=== PATIENT | female | born 2000 | race Caucasian/White ===

== ENCOUNTER → 2020-01-08 | Outpatient (CLI) | payer OTHER ==
[~2020-01-08] MED LIST: ACET-897 PO; IBUP-1720 PO; MAPA500T2 PO
[2020-01-08 19:24] LABS: BASO % 0.2 % (0.0-1.0); EOS # 0.1 10^3/uL (0.0-0.5); EOS % 0.7 % (0.0-3.0); HEMATOCRIT 39.3 % (36.0-47.0); HEMOGLOBIN 13.3 g/dl (12.0-15.5); LYMPH # 2.2 10^3/uL (1.5-5.0); LYMPH % 16.7 % (24.0-44.0); MEAN CORPUSCULAR HEMOGLOBIN 30.9 pg (27.0-33.0); MEAN CORPUSCULAR HGB CONC 33.8 g/dl (32.0-36.5); MEAN CORPUSCULAR VOLUME 91.4 fl (80.0-96.0); MONO # 0.8 10^3/uL (0.0-0.8); MONO % 6.4 % (0.0-5.0); NEUTROPHILS # 9.8 10^3/uL (1.5-8.5); NEUTROPHILS % 75.6 % (36.0-66.0); PLATELET COUNT, AUTOMATED 294 10^3/uL (150-450)
[2020-01-08 20:40] LABS: HEPATITIS C VIRUS ABY INDEX 0.2 INDEX (<0.8); HIV 1&2 SCREEN CENTAUR NEGATIVE (NEGATIVE)
== END ==
LOC: M PLALAB 15:32
PROVIDERS: ATTEND Advanced Practice Midwife
DX: Z34.01 Encounter for supervision of normal first pregnancy, first trimester (principal)

== ENCOUNTER 2020-01-15 15:11 | Emergency (ER) | payer MEDICAID, OTHER ==
[~2020-01-15] VITALS: Ht 160 cm; Wt 81.2 kg
[2020-01-15] MEDS ORDERED: MAPA500T2 PO (15:23)
[2020-01-15 16:50] LABS: BASO % 0.2 % (0.0-1.0); EOS # 0.1 10^3/uL (0.0-0.5); EOS % 0.5 % (0.0-3.0); HEMATOCRIT 36.5 % (36.0-47.0); HEMOGLOBIN 12.6 g/dl (12.0-15.5); LYMPH # 1.6 10^3/uL (1.5-5.0); LYMPH % 11.2 % (24.0-44.0); MEAN CORPUSCULAR HEMOGLOBIN 31.1 pg (27.0-33.0); MEAN CORPUSCULAR HGB CONC 34.5 g/dl (32.0-36.5); MEAN CORPUSCULAR VOLUME 90.1 fl (80.0-96.0); MONO # 0.7 10^3/uL (0.0-0.8); MONO % 4.6 % (0.0-5.0); NEUTROPHILS # 11.8 10^3/uL (1.5-8.5); NEUTROPHILS % 82.9 % (36.0-66.0); PLATELET COUNT, AUTOMATED 245 10^3/uL (150-450); RED BLOOD COUNT 4.05 10^6/uL (4.00-5.40); WHITE BLOOD COUNT 14.2 10^3/uL (4.0-10.0)
--- NOTE | 2020-01-15 17:13 | REPVR ---
PROCEDURE INFORMATION: Exam: US First Trimester, Transabdominal Exam date and time: 01/15/2020 4:54 PM Age: 19 years old Clinical indication: Pain; Other: Vag bleeding; Gestational age or lmp: 9wks; ; Additional info: Vb TECHNIQUE: Imaging protocol: Real-time transabdominal obstetrical ultrasound of the maternal pelvis and a first trimester , less than 14 weeks 0 days, with image documentation. COMPARISON: No relevant prior studies available. FINDINGS: Gestation: Single intrauterine gestation. Embryonic/ heart rate: 153 bpm. Placenta: No demonstrated subchorionic hemorrhage. BIOMETRY: Gestational age (AUA): Lowman-rump length 29.0 mm, corresponding to an estimated gestational age of 9 weeks 6 days. MATERNAL: Uterus: The uterus measures 9.3 x 6.3 x 8.2 cm. Question whether it is septated. Cervix: Unremarkable. Right adnexa: The right ovary measures 1.7 x 3.0 x 1.8 cm and appears unremarkable. Left adnexa: The left ovary measures 2.3 x 3.3 x 2.8 cm and appears unremarkable. Intraperitoneal space: No intraperitoneal free fluid. IMPRESSION: 1. Single viable intrauterine gestation with estimated gestational age of 9 weeks 6 days. 2. Question septation of the uterus. Electronically signed by: Larry Pavon On 01/15/2020 17:13:18 PM
[2020-01-15 19:07] VITALS: BP 120/73
== END 2020-01-15 19:11 | disposition home or self-care (01) ==
LOC: M ED 15:11
DX: O26.851 Spotting complicating pregnancy, first trimester (principal); O99.331 Smoking (tobacco) complicating pregnancy, first trimester; F17.200 Nicotine dependence, unspecified, uncomplicated; Z3A.09 9 weeks gestation of pregnancy; Z91.018 Allergy to other foods; Z88.8 Allergy status to other drugs, medicaments and biological substances

== ENCOUNTER 2020-01-21 19:59 | Observation (INO) | payer MEDICAID, OTHER ==
[~2020-01-21] VITALS: Ht 160 cm; Wt 74.5 kg
[~2020-01-21 19:59] MED LIST changes: -ACET-897 PO; -IBUP-1720 PO
[2020-01-21 20:47] LABS: BASO % 0.2 % (0.0-1.0); EOS # 0.1 10^3/uL (0.0-0.5); EOS % 0.6 % (0.0-3.0); HEMATOCRIT 34.1 % (36.0-47.0); HEMOGLOBIN 11.6 g/dl (12.0-15.5); LYMPH # 2.3 10^3/uL (1.5-5.0); LYMPH % 15.9 % (24.0-44.0); MEAN CORPUSCULAR HEMOGLOBIN 30.9 pg (27.0-33.0); MEAN CORPUSCULAR VOLUME 90.9 fl (80.0-96.0); MONO # 0.7 10^3/uL (0.0-0.8); MONO % 4.6 % (0.0-5.0); NEUTROPHILS # 11.2 10^3/uL (1.5-8.5); NEUTROPHILS % 78.2 % (36.0-66.0); PLATELET COUNT, AUTOMATED 248 10^3/uL (150-450); RED BLOOD COUNT 3.75 10^6/uL (4.00-5.40); WHITE BLOOD COUNT 14.2 10^3/uL (4.0-10.0)
[2020-01-21] MEDS ORDERED: NS 1,000 ML IV SCH (21:31)
[2020-01-21] MEDS ORDERED: METOCLOPRAMIDE INJ 10MG/2ML VIAL (J2765 PER 1) IV ONE (21:45)
[2020-01-21 22:08] LABS: INR 1.02; PARTIAL THROMBOPLASTIN TIME 30.1 SECONDS (25.0-38.4); PROTHROMBIN TIME 13.6 SECONDS (11.8-14.0)
[2020-01-21 22:12] LABS: ALBUMIN 3.4 GM/DL (3.2-5.2); ALT/SGPT 22 U/L (12-78); BILIRUBIN,DIRECT 0.1 MG/DL (0.0-0.2); BILIRUBIN,TOTAL 0.2 MG/DL (0.2-1.0); BLOOD UREA NITROGEN 5 MG/DL (7-18); CALCIUM LEVEL 8.4 MG/DL (8.5-10.1); CARBON DIOXIDE LEVEL 25 MEQ/L (21-32); CHLORIDE LEVEL 108 MEQ/L (98-107); CREATININE FOR GFR 0.46 MG/DL (0.55-1.30); GLUCOSE, FASTING 88 MG/DL (70-100); HCG, SERUM QUANTITATIVE 21392 MIU/ML; POTASSIUM SERUM 3.5 MEQ/L (3.5-5.1); SODIUM LEVEL 137 MEQ/L (136-145); TOTAL PROTEIN 6.5 GM/DL (6.4-8.2)
[2020-01-21] MEDS ORDERED: IBUP-1720 PO (23:51)
[2020-01-21] MEDS ORDERED: ACET-897 PO (23:51)
[2020-01-22] MEDS ORDERED: METOCLOPRAMIDE 10 MG TAB PO PRN (00:30)
[2020-01-22] MEDS ORDERED: ACETAMINOPHEN TAB 650MG DOSE (2X325MG) PO PRN (00:30)
--- NOTE | 2020-01-22 01:10 | HPEPDOC ---
General Date of Admission 01/22/2020 Date of Service: Jan 22, 2020 Attending Physician: FLORES LOMBARDO MD Chief Complaint The patient is a 19-year-old female admitted with a reason for visit of Abd Pain. Source: Patient Exam Limitations: No limitations Timing/Duration: 1/2-1 hour Severity: Moderate Associated Symptoms: Headaches History of Present Illness 19 yo at 10w5d with confirmed intrauterine c/b mild vaginal bleeding who presented with acute onset R eye lateral deviation, bilateral facial numbness, R arm and R leg numbness that lasted up to 30 minutes followed by a severe headache that prompted her to present to the ED. Of note, she has no prior history of migraine and was recently in the ED for vaginal bleeding/spotting for which she had confirmation of an intrauterine and [facility]. She reported a 30 minute history of the above neurological symptoms that self resolved and followed by a severe frontal headache that also had resolved by the time I examined her in the ED, after she had been given reglan. She otherwise reported ongoing spotting as previously reported and mild cramping, with april heavy bleeding, no chest pain, palpitation, leg swelling or pain, SOB, fever or recent sick contacts. She also denied a history of blood clots or smoking. In the ED, she was hemodynamically stable, afebrile with a nonfocal neurological examination reporting initially a headache, that had resolved by the time of my assessment. Neurology was contacted by the ED physician that suspected a complex migraine and suggested carotid doppler US, possible consideration of an MRI if neurological deficits/changes returned and possible hypercoagulable workup. Workup in the ED was notable for grossly normal CT head without contrast, stable leukocytosis of 14.2 from prior, mild anemia to Hgb 11.6, na 137, K 3.5, Cr 0.46, bland [place] [address] and LFT wnl. She is now being admitted to medicine for observation of likely complex migraine. Home Medications Scheduled PRN Acetaminophen (Tylenol Extra Strength) 500 Mg Tablet, 1,000 MG PO Q6H PRN for PAIN, (Reported) Ibuprofen (Ibuprofen) 200 Mg Tablet, 400 MG PO Q6H PRN for PAIN, (Reported) Allergies Coded Allergies: fluoxetine (Verified Adverse Reaction, Intermediate, vomiting, mood swings., 01/15/20) cinnamon (Verified Adverse Reaction, Unknown, 01/15/20) Past Medical History Medical History Depression Anxiety Surgical History None Family History Significant Family History: No pertinent family hx Social History * Smoker: Denies Alcohol: Denies Drugs: denies Recent Travel/Sick Contacts: Denies: Recent travel, Recent sick contacts Psychosocial History: Anxiety, Depression A-FIB/CHADSVASC A-FIB History Current/History of A-Fib/PAF?: No Current PO Anticoag Therapy: No Age/Risk Factor Scoring CHADSVASC: CHADSVASC Response (Comments) Value Age Risk Factor Age < 65 years old 0 Gender Risk Factor Female 1 Hx of CHF No 0 Hx of HTN No 0 Hx of Stroke/TIA/or VTE No 0 Hx of Diabetes No 0 Hx of Vascular Disease No 0 Total 1 Treatment Treatment ordered: NONE Reason Anticoagulant not given: Not indicated/[id number] Review of Systems Constitutional: Denies: Chills, Fever, Night Sweats Eyes: Reports: Other (R eye "deviation"); Denies: Pain, Vision change ENT: Denies: Head Aches, Ear Pain, Dysphagia Skin: Denies: Rash, Lesions, Breakdown Pulmonary: Denies: Dyspnea, Cough Cardiovascular: Denies: Chest Pain, Palpitations, Orthopnea, Paroxysmal Noc. Dyspnea, Lt Headedness Gastrointestinal: Denies: Nausea, Vomiting, Abdominal Pain, Diarrhea Genitourinary: Denies: Dysuria, Frequency, Incontinence, Retention Hematologic: Denies: Bruising, Bleeding Excessively Endocrine: Denies: Polydipsia, Polyphagia, Polyuria, Heat Intolerance, Cold Intolerance, Other Endocrine Sx Musculoskeletal: Denies: Neck Pain, Back Pain, Joint Pain, Muscle Pain, Spasms Neurological: Reports: Numbness (face, R arm and R leg); Denies: Weakness, Incoordination, Change in speech, Confusion, Seizures Psych: Reports: Mood Normal; Denies: Depression, Memory Issues Physical Examination General Exam: Positive: Alert, No Acute Distress ENT Exam: Positive: Atraumatic, Mucous membr. moist/pink, Pharynx Normal Neck Exam: Positive: Supple; Negative: JVD, thyromegaly Chest Exam: Positive: Clear to auscultation, Normal air movement Heart Exam: Positive: Rate Normal, Regular Rhythm, Normal S1, Normal S2; Negative: Murmurs, Rubs Telemetry: Positive: No significant arrhythmia Abdomen Exam: Positive: Normal bowel sounds, Soft; Negative: Tenderness, Hepatospenomegaly Extremity Exam: Positive: Normal pulses; Negative: Clubbing, Cyanosis, Edema Skin Exam: Positive: Nl turgor and temperature; Negative: Breakdown, Lesion Neuro Exam: Positive: Normal Gait, Normal Speech, Strength at 5/5 X4 ext, Normal Tone, Sensation Intact, Cranial Nerves 3-12 NL, Reflexes 2+ Psych Exam: Positive: Mental status NL, Mood NL, Oriented x 3 Vital Signs Vital Signs Date Time Temp Pulse Resp B/P (MAP) Pulse Ox O2 Delivery O2 Flow Rate FiO2 01/21/20 21:13 72 16 126/67 98 01/21/20 20:12 99.1 Room Air Laboratory Data Labs 24H Laboratory Tests 2 01/21/20 20:29: Immature Granulocyte % (Auto) 0.5, Neutrophils (%) (Auto) 78.2H, Lymphocytes (%) (Auto) 15.9L, Monocytes (%) (Auto) 4.6, Eosinophils (%) (Auto) 0.6, Basophils (%) (Auto) 0.2, Neutrophils # (Auto) 11.2H, Lymphocytes # (Auto) 2.3, Monocytes # (Auto) 0.7, Eosinophils # (Auto) 0.1, Basophils # (Auto) 0.0, Nucleated Red Blood Cells % (auto) 0.0, Prothrombin Time 13.6, Prothromb Time International Ratio 1.02, Activated Partial Thromboplast Time 30.1, Urine Color YELLOW, Urine Appearance CLEAR, Urine pH 7.0, Urine Specific [place] 1.012, Urine Protein NEGATIVE, Urine Glucose (UA) NEGATIVE, Urine Ketones TRACEH, Urine Blood NEGATIVE, Urine Nitrite NEGATIVE, Urine Bilirubin NEGATIVE, Urine Urobilinogen 0.2, Urine Leukocyte Esterase NEGATIVE, Urine WBC (Auto) 1, Urine RBC (Auto) 1, Urine Hyaline Casts (Auto) 0, Urine Bacteria (Auto) NEGATIVE, Urine Squamous Epithelial Cells 1, Urine Mucus (Auto) SMALL, Urine Sperm (Auto) , Anion Gap 4L, Calcium Level 8.4L, Total Bilirubin 0.2, Direct Bilirubin 0.1, Aspartate Amino Transf (AST/SGOT) 17, Alanine Aminotransferase (ALT/SGPT) 22, Alkaline Phosphatase 62, Total Protein 6.5, Albumin 3.4, Albumin/Globulin Ratio 1.1L, Human Chorionic Gonadotropin, Quant [id number] CBC/BMP Laboratory Tests 01/21/20 20:29 Assessment/Plan 19 yo at 10w5d with confirmed intrauterine c/b mild vaginal bleeding who presented with acute onset R eye lateral deviation, bilateral facial numbness, R arm and R leg numbness that lasted up to 30 minutes followed by a severe headache most c/w a complex migraine as well as persistent vaginal spotting with a stable mild anemia. Complex migraine headache with prodromal neurological symptoms -CT head wnl -Headache now resolved, after fluids and reglan -Reglan PRN -Will hold off MRI at this time given resolution of symptoms and will observe overnight for return of symptoms that may prompt further imaging -Q4H neuro checks -Carotid doppler US, per neuro recs -Will hold off hypercoagulable workup at this time with low suspicion of clot given no history and self resolution of symptoms Vaginal bleeding in G1PO at 10w5d: -Recently presented for same a few days ago and had confirmed intrauterine . -pending pelvic ultrasound -H/H is stable, check AM CBC -[facility] -daily vitamin DVT ppx: TEDs Dispo: obs, likely home within 24h Plan / VTE VTE Prophylaxis Ordered?: Yes FLORES LOMBARDO MD Jan 22, 2020 01:10
[2020-01-22 02:23] VITALS: BP 132/76
[2020-01-22 06:00] VITALS: BP 105/64
[2020-01-22 07:00] LABS: HEMATOCRIT 36.6 % (36.0-47.0); HEMOGLOBIN 12.4 g/dl (12.0-15.5); MEAN CORPUSCULAR HEMOGLOBIN 30.7 pg (27.0-33.0); MEAN CORPUSCULAR HGB CONC 33.9 g/dl (32.0-36.5); MEAN CORPUSCULAR VOLUME 90.6 fl (80.0-96.0); PLATELET COUNT, AUTOMATED 247 10^3/uL (150-450); RED BLOOD COUNT 4.04 10^6/uL (4.00-5.40); WHITE BLOOD COUNT 12.3 10^3/uL (4.0-10.0)
[2020-01-22 07:07] LABS: BLOOD UREA NITROGEN 6 MG/DL (7-18); CALCIUM LEVEL 8.7 MG/DL (8.5-10.1); CARBON DIOXIDE LEVEL 23 MEQ/L (21-32); CHLORIDE LEVEL 110 MEQ/L (98-107); CREATININE FOR GFR 0.43 MG/DL (0.55-1.30); GLUCOSE, FASTING 82 MG/DL (70-100); POTASSIUM SERUM 3.5 MEQ/L (3.5-5.1); SODIUM LEVEL 139 MEQ/L (136-145)
[2020-01-22] MEDS ORDERED: PRENATAL VITAMINS CHEWABLE TABLET PO SCH (09:00)
[2020-01-22 12:43] VITALS: BP 137/83
[2020-01-22 14:00] VITALS: BP 109/67
[2020-01-22 14:15] VITALS: BP_SYST 109; BP_SYST 128; BP_SYST 130; BP_DIAS 67; BP_DIAS 68; BP_DIAS 74
--- NOTE | 2020-01-22 16:21 | DS.PDOC ---
Discharge Summary General Date of Admission Jan 22, 2020 at 00:19 Date of Discharge 2019 Attending Physician: BROOKS JOHNSON MD Specialist/Consultants Involve: Kim Loera MD Discharge Summary PROCEDURES PERFORMED DURING STAY: [None]. ADMITTING DIAGNOSES/DISCHARGE DIAGNOSES: 1. Complex hemiplegic migraine. COMPLICATIONS/CHIEF COMPLAINT: Headache,Right Sided Numbness, Vaginal Bleeding. HISTORY OF PRESENT ILLNESS: The patient is a 19-year-old 11 weeks 2 days chest addition with a confirmed intrauterine who presented to the em ergency department today with mild vaginal bleeding with clots and cramping abdominal pain, followed by a sudden onset excruciating headache with right sided lateral deviation of eye, bilateral facial numbness, right arm and right leg numbness that lasted up to 30 minutes. All these episodes happened over the same time period. The patient had been bending over and lifting some things when she started with this episode. The patient states she has had recurrent headache episodes with slight blurring of vision before, her last episode of headache with blurring of vision was 4 years ago. She does not see any neurologist and has no primary care provider but sees a system software programmer for her . The patient has had a vaginal bleeding episode one week ago and was admitted to [facility] where she was confirmed to have a viable intrauterine with a gestational age of 9 weeks and 6 days. Today she denies any dizziness or loss of consciousness chest pain palpitations or leg swelling shortness of breath fever or any history of travel. The patient had one episode of vomiting but that is because of her regular morning sickness. HOSPITAL COURSE/DISCHARGE PLAN: The patient was hemodynamically stable afebrile initially reporting a headache which got better over a period of minutes she was given some fluids and Reglan in the ED. CT head without contrast was done which turned out to be normal she had stable leukocytosis mild anemia hemoglobin of 11.6. Neurology was consulted who recommended a Carotid Doppler ultrasoundthe report is pending. The patient's condition kept on improving and since she has had a past history of complex migraine she was not worked up any further for hypercoagulable state. The patient however is advised to follow-up with neurology in an outpatient setting for her hemiplegic complex migraine. Gynecology was also consulted for her to episodes of vaginal bleeding with clots and cramping. Her pelvic ultrasound showed a normal viable intrauterine gestation with an estimated gestational age of 11 weeks and 2 days. The SHIPPING MANAGER doctors Luz Maria suggested that the patient follow-up with them [facility]. The patient is already scheduled for an SHIPPING MANAGER appointment on 02/10/2020. DISCHARGE MEDICATIONS: Please see below. ALLERGIES: Please see below. PHYSICAL EXAMINATION ON DISCHARGE: VITAL SIGNS: Please see below. GENERAL: The patient was in no acute distress sitting comfortably in the bed HEENT: Atraumatic normocephalic, mucous membranes moist, extraocular muscles intact, vision intact, no drooping of eyelids NECK: Noted lymphadenopathy, no thyromegaly, no carotid bruit CARDIOVASCULAR EXAMINATION: Normal S1-S2, no murmurs or rubs heard RESPIRATORY EXAMINATION: Clear to auscultation bilaterally, no wheezes, no crackles and no rhonchi heard ABDOMINAL EXAMINATION: Soft obese, nondistended nontender, no organomegaly palpated. EXTREMITIES: Normal range of motion in all 4 extremities, no rashes clots or dryness noted SKIN: Normal color and temperature and well perfused NEUROLOGICAL EXAMINATION: 5/5 motor strength in all 4 extremities with sensations intact. Cranial nerves 2-12 normal. No residual weakness numbness or tingling PSYCHIATRIC EXAMINATION: The patient has a normal affect and alert oriented to time place and person LABORATORY DATA: Please see below. IMAGING: -CT head without contrast: Normal -Pelvic ultrasound: Shows a single viable intrauterine gestation with an estimated gestational age of 11 weeks and 2 days -US Carotid doppler: No abnormality noted. PROGNOSIS: Good ACTIVITY: As tolerated. DIET: As tolerated DISPOSITION: DISCHARGE INSTRUCTIONS: 1. Patient must follow-up with neurology outpatient for her complex hemiplegic migraine management. 2. patient must keep her SHIPPING MANAGER appointment scheduled for 02/10/2020. 3. patient must report to the emergency department in case symptoms worsen. DISCHARGE CONDITION: Stable. TIME SPENT ON DISCHARGE: Greater than 40 minutes. Vital Signs/I&Os Vital Signs Date Time Temp Pulse Resp B/P (MAP) Pulse Ox O2 Delivery O2 Flow Rate FiO2 01/22/20 14:15 73 109/67 (81) 77 130/68 (88) 110 128/74 (92) 01/22/20 14:00 98.6 18 99 Room Air I&O- Last 24 Hours up to 6 AM 01/22/20 06:00 Intake Total 800 ml Balance 800 ml Laboratory Data Labs 24H Laboratory Tests 2 01/21/20 20:29: Immature Granulocyte % (Auto) 0.5, Neutrophils (%) (Auto) 78.2H, Lymphocytes (%) (Auto) 15.9L, Monocytes (%) (Auto) 4.6, Eosinophils (%) (Auto) 0.6, Basophils (%) (Auto) 0.2, Neutrophils # (Auto) 11.2H, Lymphocytes # (Auto) 2.3, Monocytes # (Auto) 0.7, Eosinophils # (Auto) 0.1, Basophils # (Auto) 0.0, Nucleated Red Blood Cells % (auto) 0.0, Prothrombin Time 13.6, Prothromb Time International Ratio 1.02, Activated Partial Thromboplast Time 30.1, Urine Color YELLOW, Urine Appearance CLEAR, Urine pH 7.0, Urine Specific [place] 1.012, Urine Protein NEGATIVE, Urine Glucose (UA) NEGATIVE, Urine Ketones TRACEH, Urine Blood NEGATIVE, Urine Nitrite NEGATIVE, Urine Bilirubin NEGATIVE, Urine Urobilinogen 0.2, Urine Leukocyte Esterase NEGATIVE, Urine WBC (Auto) 1, Urine RBC (Auto) 1, Urine Hyaline Casts (Auto) 0, Urine Bacteria (Auto) NEGATIVE, Urine Squamous Epithelial Cells 1, Urine Mucus (Auto) SMALL, Urine Sperm (Auto) , Anion Gap 4L, Calcium Level 8.4L, Total Bilirubin 0.2, Direct Bilirubin 0.1, Aspartate Amino Transf (AST/SGOT) 17, Alanine Aminotransferase (ALT/SGPT) 22, Alkaline Phosphatase 62, Total Protein 6.5, Albumin 3.4, Albumin/Globulin Ratio 1.1L, Human Chorionic Gonadotropin, Quant [id number] 01/22/20 06:13: Nucleated Red Blood Cells % (auto) 0.0, Anion Gap 6L, Calcium Level 8.7 CBC/BMP Laboratory Tests 01/21/20 20:29 01/22/20 06:13 Discharge Medications Scheduled PRN Acetaminophen (Tylenol Extra Strength) 500 Mg Tablet, 1,000 MG PO Q6H PRN for PAIN, (Reported) Ibuprofen (Ibuprofen) 200 Mg Tablet, 400 MG PO Q6H PRN for PAIN, (Reported) Allergies Coded Allergies: fluoxetine (Verified Adverse Reaction, Intermediate, vomiting, mood swings., 01/15/20) cinnamon (Verified Adverse Reaction, Unknown, 01/15/20) GME ATTESTATION GME ATTESTATION My faculty preceptor for this patient encounter was physically present during the encounter and was fully available. All aspects of the patient interview, examination, medical decision making process, and medical care plan development were reviewed and approved by the faculty preceptor. The faculty preceptor is aware and concurs with the plan as stated in the body of this note and will attest to such by his/her cosignature. ATTENDING NOTE Pt was seen and examined by me personally with the residents/students. Agree with the above assessment plan. Gloria Lemus MD Jan 22, 2020 16:21 BROOKS JOHNSON MD Jan 31, 2020 10:29
--- NOTE | 2020-01-25 10:04 | ECGEPIP ---
[facility] - ED Test Date: 2020-01-21 Pat Name: SETH MORELAND Department: Room: [place] [address] Gender: Female Workgroup Leader: KELSIE : 2000 Requested By: BRANDON Holden Order Number: [id number] Reading MD: Luis Fernando Lange Measurements Intervals [place] Rate: 70 P: 68 AL: 146 QRS: 7 QRSD: 84 T: 35 QT: 419 QTc: 453 Interpretive Statements SINUS RHYTHM NSTTW ABNORMALITIES NO PRIORS FOR COMPARISON Electronically Signed on 01-25-2020 10:03:59 EDT by Luis Fernando Lange
--- NOTE | 2020-02-07 09:32 | REP ---
CT BRAIN WITHOUT CONTRAST: 01/22/20 Repeat dictation. HISTORY: Right sided mouth numbness, resolved. Preliminary report is provided at the time of the exam by virtual radiology. FINDINGS: Preliminary digital power distributor radiograph is unremarkable. Bone window settings demonstrate an intact bony calvarium. The visualized peroneal sinuses are clear. No intraorbital abnormality is seen. On soft tissue window settings, the latera, third, and fourth ventricles are normal in size and position. Yanes-white differentiation pattern is normal above and below tentorium. There is no evidence of intracranial hemorrhage. No mass, infarct, extraaxial fluid collection or midline shift is seen. IMPRESSION: Negative non-contrast brain CT. MTDD
--- NOTE | 2020-02-07 09:34 | REP ---
DUPLEX CAROTID SONOGRAPHY (REPEAT DICTATION) HISTORY: Transient neurologic changes. Preliminary report is provided at the time of exam by [facility]. FINDINGS: Antegrade flow is observed in both vertebral arteries. RIGHT CAROTID: Right common carotid artery is unremarkable. There is no visible plaquing in the bulb, proximal ICA, or proximal ECA. Color flow and spectral Doppler interrogation are unremarkable on the right. VELOCITY CHART RIGHT CAROTID PSV EDV CCA 128 cm/s ICA 119 cm/s 43 cm/s ECA 105 cm/s ICA/CCA ratio 0.9 (normal) IMPRESSION: Negative right carotid duplex sonography. No evidence of stenosis. LEFT CAROTID: The left carotid artery is unremarkable. There is no observable plaquing or other morphologic abnormality in the carotid bifurcation or proximal ICA on the left. Color flow and spectral Doppler interrogation are unremarkable on the left. VELOCITY CHART LEFT CAROTID PSV EDV CCA 142 cm/s ICA 98 cm/s 40 cm/s ECA 110 cm/s ICA/CCA ratio 0.7 (normal) IMPRESSION: Negative left carotid sonography MTDD
== END 2020-01-22 19:20 | disposition home or self-care (01) ==
LOC: M ED 19:59 → M ED INP 01-22 00:19 → ENRESERV 01-22 01:09 → M MSPAV 01-22 02:25
PROVIDERS: ADMIT Internal Medicine; ATTEND Internal Medicine
DX: G43.411 Hemiplegic migraine, intractable, with status migrainosus (principal); R20.2 Paresthesia of skin; Z88.8 Allergy status to other drugs, medicaments and biological substances; F41.9 Anxiety disorder, unspecified; F32.9 Major depressive disorder, single episode, unspecified; Z33.1 Pregnant state, incidental
CPT/HCPCS: 36415; 70450; 76801; 80048; 80076; 81001; 84702; 85025; 85027; 85610; 85730; 86850; 86900; 86901; 93005; 93041; 93880; 93976; 94760; 96361; 96374; 99285; J2765

== ENCOUNTER → 2020-03-23 | Outpatient (CLI) | payer OTHER ==
[~2020-03-23] MED LIST changes: +ACET-897 PO; +IBUP-1720 PO
--- NOTE | 2020-03-24 04:05 | REP ---
INDICATION: ANATOMY COMPARISON: None. TECHNIQUE: Transabdominal obstetrical ultrasound with color Doppler evaluation. FINDINGS: Examination demonstrates a single live intrauterine in breech presentation. motion is identified by technologist. Placenta is noted posterior and grade 1 without evidence for placenta previa or abruption. Amniotic fluid volume is normal. Cervix measures 3.5 cm in length and appears closed.. Gestational age by LMP 22 weeks 1 day with MEHNAZ 07/26/2020. Gestational age by current measurements 19 weeks 4 days with MEHNAZ 08/13/2020. FHR equals 142 beats per minute. BPD: 4.7 cm 18 weeks 5 days HC: 16.7 cm 19 weeks 2 days AC: 15.3 cm 20 weeks 4 days FL: 3.0 cm nineteen weeks 1 day HL: 3.0 cm there is 19 weeks 5 days HC/AC: 1.09 Estimated weight 315 grams (60thpercentile). Anatomical assessment demonstrates normal structures including cranium, choroid plexus, cavum, cerebellum/posterior fossa, facial features, lungs, cardiac ventricular outflow tracts, diaphragm, stomach, cord insertion/three-vessel cord, kidneys/bladder, spine, and extremities. IMPRESSION: Single live intrauterine in breech presentation demonstrating appropriate estimated weight and growth. Limited evaluation of the four-chamber heart. Remainder of the anatomical assessment is complete and normal. <Electronically signed by Dion Ball > 03/24/20 [id number]
== END ==
LOC: M WHC 09:58
PROVIDERS: ATTEND Advanced Practice Midwife
DX: O32.1XX0 Maternal care for breech presentation, not applicable or unspecified (principal); Z3A.19 19 weeks gestation of pregnancy

== ENCOUNTER → 2020-05-27 | Outpatient (REF) | payer MEDICAID, OTHER ==
[2020-05-27 14:09] LABS: HEMATOCRIT 36.4 % (36.0-47.0); HEMOGLOBIN 12.2 g/dl (12.0-15.5); MEAN CORPUSCULAR HEMOGLOBIN 31.4 pg (27.0-33.0); MEAN CORPUSCULAR HGB CONC 33.5 g/dl (32.0-36.5); MEAN CORPUSCULAR VOLUME 93.8 fl (80.0-96.0); PLATELET COUNT, AUTOMATED 246 10^3/uL (150-450); RED BLOOD COUNT 3.88 10^6/uL (4.00-5.40); WHITE BLOOD COUNT 17.6 10^3/uL (4.0-10.0)
== END ==
LOC: M PLALAB 10:42
PROVIDERS: ATTEND Obstetrics & Gynecology
DX: Z34.01 Encounter for supervision of normal first pregnancy, first trimester (principal)

== ENCOUNTER → 2020-05-27 | Outpatient (CLI) | payer OTHER ==
--- NOTE | 2020-05-27 11:01 | REP ---
INDICATION: F/U ANATOMY COMPARISON: 03/23/2020 TECHNIQUE: Transabdominal obstetrical ultrasound with color Doppler evaluation. FINDINGS: Examination demonstrates a single live intrauterine in cephalic presentation. motion is identified by technologist. Placenta is noted posterior and grade 1 without evidence for placenta previa or abruption. Amniotic fluid volume is normal. Cervix measures 3.1 cm in length and appears closed.. Gestational age by LMP 31 weeks 3 days with MEHNAZ 07/26/2020. Gestational age by current measurements 28 weeks 6 days with MEHNAZ 08/13/2020. FHR equals 139 beats per minute. IJEOMA: 16.5 cm. Estimated weight 1263 grams (30thpercentile). Anatomical assessment demonstrates normal structures including cranium, facial profile, four-chamber heart/ventricular outflow tracts, stomach, kidneys/bladder and three-vessel cord. Few images of the mediastinum suggest the possibility of a small pericardial cyst or focal pericardial fluid which may warrant follow-up. IMPRESSION: 1. Single live intrauterine in cephalic presentation demonstrating appropriate estimated weight based on age from known estimated date of delivery. 2. Possible small pericardial effusion. In conjunction with prior examination the anatomical assessment is otherwise complete and normal. <Electronically signed by Dion Ball > 05/27/20 [id number]
== END ==
LOC: M WHC 09:51
PROVIDERS: ATTEND Obstetrics & Gynecology
DX: Z34.93 Encounter for supervision of normal pregnancy, unspecified, third trimester (principal); Z3A.28 28 weeks gestation of pregnancy

== ENCOUNTER → 2020-06-10 | Outpatient (REF) | payer OTHER ==
[2020-06-10 13:55] LABS: HEMATOCRIT 35.3 % (36.0-47.0); HEMOGLOBIN 11.5 g/dl (12.0-15.5); MEAN CORPUSCULAR HEMOGLOBIN 30.4 pg (27.0-33.0); MEAN CORPUSCULAR HGB CONC 32.6 g/dl (32.0-36.5); MEAN CORPUSCULAR VOLUME 93.4 fl (80.0-96.0); PLATELET COUNT, AUTOMATED 258 10^3/uL (150-450); RED BLOOD COUNT 3.78 10^6/uL (4.00-5.40); WHITE BLOOD COUNT 14.6 10^3/uL (4.0-10.0)
[2020-06-10 14:21] LABS: HEMOGLOBIN A1c 4.8 %
[2020-06-10 14:32] LABS: TOTAL PROTEIN,RANDOM URINE 33.7 MG/DL (0.0-12.0)
[2020-06-10 14:37] LABS: ALT/SGPT 17 U/L (12-78); BILIRUBIN,TOTAL 0.2 MG/DL (0.2-1.0); CREATININE FOR GFR 0.49 MG/DL (0.55-1.30); FREE T4 0.78 NG/DL (0.78-1.33); LDH LACTATE DEHYDROGENASE 251 U/L (84-246); URIC ACID 3.6 MG/DL (2.6-6.0)
== END ==
LOC: M PLALAB 11:49
PROVIDERS: ATTEND Advanced Practice Midwife
DX: R63.5 Abnormal weight gain (principal)

== ENCOUNTER → 2020-06-22 | Outpatient (CLI) | payer OTHER | LOC: M WHC 08:05 | PROVIDERS: ATTEND Obstetrics & Gynecology | DX: Z53.9 Procedure and treatment not carried out, unspecified reason (principal) ==

== ENCOUNTER → 2020-07-13 | Outpatient (CLI) | payer OTHER ==
--- NOTE | 2020-07-13 10:17 | REP ---
INDICATION: F/U ANATOMY. COMPARISON: 05/27/2020. TECHNIQUE: Real-time sonographic evaluation of the gravid uterus performed. FINDINGS: Estimated gestational age is35 weeks 4 days, EDC 08/13/2020. Today's measurements indicate appropriate growth. Presentation: Cephalic Placenta posterior, grade 3, without evidence of placenta previa. heart rate is recorded at 150 beats per minute. Amniotic fluid is subjectively normal. IJEOMA 15.3, normal range 7.8-24.9. Closed cervical length is measured at 3.3 cm. Biometry chart: BPD: 88 mm, 35 weeks 3 days, 49th percentile. HC: 313 mm, 35 weeks 0 days, 41st percentile AC: 309 mm, 34 weeks 6 days, 38th percentile Femur length: 68 mm, 34 weeks 5 days, 37th percentile HC to AC ratio: 1.01, normal range 0.93-1.12. Estimated weight: 2533g, 30th percentile. The region of the heart and pericardium is suboptimally visualized due to position. On today's exam the previously noted pericardial fluid cannot be adequately evaluated. IMPRESSION: Viable single intrauterine gestation as above. The region of the heart and pericardium is suboptimally visualized due to position. On today's exam the previously noted pericardial fluid cannot be adequately evaluated. <Electronically signed by Rickey Yanes > 07/13/20 [id number]
== END ==
LOC: M WHC 08:29
PROVIDERS: ATTEND Obstetrics & Gynecology
DX: Z36.89 Encounter for other specified antenatal screening (principal); Z3A.35 35 weeks gestation of pregnancy

== ENCOUNTER → 2020-07-17 | Outpatient (REF) | payer OTHER | LOC: M SFHCWAGY 18:20 | PROVIDERS: ATTEND Advanced Practice Midwife | DX: O99.213 Obesity complicating pregnancy, third trimester (principal) ==

== ENCOUNTER → 2020-07-20 | Outpatient (CLI) | payer OTHER ==
--- NOTE | 2020-07-20 16:19 | REP ---
INDICATION: NON REASSURING NST, DECREASED MOVEMENT. COMPARISON: None. TECHNIQUE: Multiple ultrasonographic and Doppler ultrasound images of the gravid uterus. FINDINGS: There is a single intrauterine gestation. Gestational age by LMP is 39 weeks 1 day with an MEHNAZ of 07/07/2020. Gestational age by the 1st ultrasound is 37 weeks 0 days with an MEHNAZ of 08/10/2020. The study is performed for decreased movement. The fetus is in a cephalic presentation. The placenta is posterior with grade 3 maturity. No previa is identified. heart rate is 134 beats per minute. Amniotic fluid index is 16.4. Normal is 7.6-24.6. biophysical profile: breathing 2 tone 2 movement 2 Amniotic fluid volume 2 Total 8/8. IMPRESSION: biophysical profile is 8/8. <Electronically signed by Rickey Lakhani > 07/20/20 [id number]
== END ==
LOC: M RAD 15:18
PROVIDERS: ATTEND Advanced Practice Midwife
DX: O36.8131 Decreased fetal movements, third trimester, fetus 1 (principal); Z3A.39 39 weeks gestation of pregnancy

== ENCOUNTER 2020-07-21 17:26 | Inpatient (IN) | payer OTHER ==
[~2020-07-21] VITALS: Ht 162.6 cm; Wt 109.6 kg
[2020-07-21] MEDS ORDERED: LACTATED RINGER'S 1000 ML IV STA (18:03)
[2020-07-21 18:18] VITALS: BP 132/84
[2020-07-21 19:10] LABS: HEMATOCRIT 35.5 % (36.0-47.0); HEMOGLOBIN 11.8 g/dl (12.0-15.5); MEAN CORPUSCULAR HEMOGLOBIN 29.9 pg (27.0-33.0); MEAN CORPUSCULAR HGB CONC 33.2 g/dl (32.0-36.5); MEAN CORPUSCULAR VOLUME 90.1 fl (80.0-96.0); PLATELET COUNT, AUTOMATED 250 10^3/uL (150-450); RED BLOOD COUNT 3.94 10^6/uL (4.00-5.40); WHITE BLOOD COUNT 17.2 10^3/uL (4.0-10.0)
[2020-07-21] MEDS: miSOPROStol 50MCG 1/2 TABLET PO SCH (20:00)
--- NOTE | 2020-07-21 20:52 | HPEPDOC ---
Obstetrical History & Physical General Date of Admission 07/21/2020 History of Present Illness Karo is a 19yo with SIUP at 36w5d by 8wk u/s presenting to L&D with CC of leakage of fluid at 1600 today. She notes that she is "soaking depends" and fluid continues to gush out- it is clear. She notes "painful regular contractions for 4 days". No vaginal bleeding. Good movement. No f/c. 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 deficit disorder, Depression * Smoker: non-smoker Alcohol: Denies Drugs: denies Imunizations Tdap status: declined Allergies Coded Allergies: fluoxetine (Verified Adverse Reaction, Intermediate, vomiting, mood swings., 01/15/20) cinnamon (Verified Adverse Reaction, Unknown, 01/15/20) Medications Scheduled PRN Acetaminophen (Tylenol Extra Strength) 500 Mg Tablet, 1,000 MG PO Q6H PRN for PAIN Physical Examination Physical Examination GENERAL: Alert and oriented times three. ABDOMEN: Gravid and non-tender to touch. FETUS: Is vertex (VTX) by TAUS at bedside EXTREMITIES: No edema Pertinent Laboratoy Data Blood Type: O+ RBC Antibody Screen: Negative HIV: Negative Hepatitis B: Negative Hepatitis C: Negative Rapid Plasma Reagin: Nonreactive Rubella: Immune Chlamydia/Gonorrhea: Negative Group B Streptococcus: Negative Glucose Tolerance Test: 84 Anatomy Ultrasound Ultrasound Date: Mar 23, 2020 Placenta Location: Posterior Normal Anatomy: Yes (small pericardial effusion noted, f/u u/s was not able to visualize the area well enough to comment) Placenta Previa: No Steroid Therapy Steroid Therapy: No Vaginal Examination Dilation: Fingertip Effacement: 70% Station: -3 Cervical Consistency: Medium Cervical Position: Posterior Presentation: Cephalic presentation Assessment Heart Rate (FHR): 130 Variability: Moderate Accelerations: Positive Decelerations: None Tocometer Contractions: Yes Frequency: irregular Assessment/Plan Assessment Karo is a 19yo with SIUP at 36w5d by 8wk u/s admitted to L&D for PPROM, clear, at 1400 today. Nitrazine positive. Grossly ruptured. SCE ft/75/high. Cephalic by TAUS. Cat I FHRT with irreg ctx. 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 Diet: regular for now, clear liquids in labor Group B Streptococcus (GBS) negative Labs and intravenous (IV) per unit protocol. Counseled on cytotec, cornelius bulb, Pitocin and induction of labor (IOL). Will start with 50mcg cytotec PO q4hr. Lactated Ringers (LR): Bolus 800 mL, then at 125 mL/hr. Stadol in latent labor for pain if desired, epidural in active labor for pain if desired Kim Loera MD Jul 21, 2020 18:06
[2020-07-21] MEDS ORDERED: PROMETHAZINE INJ 25 MG/ML VIAL (J2550) IV PRN (20:55)
[2020-07-21] MEDS: BUTORPHANOL 2 MG/ML INJ (J0595) IV PRN (21:40)
[2020-07-22] VITALS (89 sets, daily range): BP systolic 89–151; BP diastolic 50–91
[2020-07-22] MEDS: miSOPROStol 50MCG 1/2 TABLET PO SCH (00:18)
[2020-07-22] MEDS: BUTORPHANOL 2 MG/ML INJ (J0595) IV PRN (00:18)
[2020-07-22] MEDS ORDERED: FENTANYL 2MCG/ML ROPIVACAINE 0.2% IN 0.9% NACL 100ML IVBAG As Ordered ONE (01:55)
[2020-07-22] MEDS: LR 1,000 ML IV SCH ×3 (02:03→13:59)
[2020-07-22] MEDS: ePHEDrine SULFATE 25 MG/5 ML(5MG/ML) SYRINGE IV PRN ×5 (03:58→13:44)
[2020-07-22] MEDS ORDERED: ONDANSETRON 4MG/2ML VIAL IV PRN (04:00)
[2020-07-22] MEDS ORDERED: REFRIGERATOR IV KEYS XX PRN (04:00)
[2020-07-22] MEDS ORDERED: LACTATED RINGER'S 1000 ML IV PRN (04:00)
[2020-07-22] MEDS ORDERED: EPIDURAL/PCA KEYS XX PRN (04:00)
[2020-07-22] MEDS ORDERED: EPIDURAL COMMENT XX SCH (04:00)
[2020-07-22] MEDS ORDERED: diphenhydrAMINE 50MG/ML VIAL (J1200) IV PRN (04:00)
[2020-07-22] MEDS ORDERED: NALOXONE INJ 0.4MG/1ML VIAL (J2310 PER 1MG) IV PRN (04:00)
[2020-07-22] MEDS ORDERED: FENTANYL/ROPIVACAINE/NACL BAG 100 ML EPIDURAL SCH (04:00)
[2020-07-22] MEDS ORDERED: ePHEDrine INJ 50 MG/ML VIAL IV STA (04:51)
--- NOTE | 2020-07-22 07:01 | IPNPDOC ---
Text Note Date of Service The patient was seen on 07/22/20. NOTE Intrapartum Note Pt doing well. She received an epidural over the night and had some related hypotension which she needed ephedrine for and epidural rate was turned down, so wasn't as effective for a while. Anesthesia provider has been working to treat pain without causing further hypotension. During that time there were periods of decreased FHR variability, but overall still reassuring. Last dose of cytotec received around midnight. Vitals wnl, afebrile SCE: 2/80/-2, soft. Mcneil cervical bulb placed with 40cc NS. Fluid still clear Cat I FHRT with bl 130, +accels,-decels, mod edmundo Ctx q2-4min Plan to start pitocin and titrate per protocol Will continue to closely monitor Safe to proceed Kim Loera MD VS,Herminio, I+O VSHerminio, I+O Laboratory Tests 07/21/20 18:51 Vital Signs Date Time Temp Pulse Resp B/P (MAP) Pulse Ox O2 Delivery O2 Flow Rate FiO2 07/22/20 00:18 20 07/21/20 21:40 Room Air 07/21/20 18:18 98.1 83 132/84 (100) Kim Loera MD Jul 22, 2020 07:01
[2020-07-22] MEDS ORDERED: LR 1,000 ML IV SCH (08:16)
[2020-07-22] MEDS ORDERED: OXYTOCIN DRIP 30 UNITS in IV 1 EA IV SCH ×2 (08:20→16:01)
[2020-07-22] MEDS ORDERED: ePHEDrine SULFATE 25 MG/5 ML(5MG/ML) SYRINGE IV PRN (13:20)
[2020-07-22 15:34] LABS: CORD GAS ABE V -6.3; CORD GAS HCO3 V 18.8 MEQ/L; CORD GAS O2 SAT V 72.6 %; CORD GAS PCO2 V 36.7 mmHg; CORD GAS PH V 7.327 UNITS; CORD GAS PO2 V 31.8 mmHg; CORD GAS SBC V 18.8 MEQ/L; CORD GAS TCO2 V 19.9 MEQ/L
[2020-07-22 15:36] LABS: CORD GAS ABE A -12.6; CORD GAS HCO3 A 19.4 MEQ/L; CORD GAS O2 SAT A 21.9 %; CORD GAS PCO2 A 72.3 mmHg; CORD GAS PH A 7.047 UNITS; CORD GAS PO2 A 17.7 mmHg; CORD GAS SBC A 13.4 MEQ/L; CORD GAS TCO2 A 21.6 MEQ/L
[2020-07-22] MEDS ORDERED: IBUPROFEN 600MG TAB PO PRN (16:05)
[2020-07-22] MEDS ORDERED: MEASLES,MUMPS,RUBELLA VACCINE INJ (MMR-II) (90707) SC SCH (16:05)
[2020-07-22] MEDS ORDERED: METHYLERGONOVINE MALEATE 0.2 MG TAB PO PRN (16:05)
[2020-07-22] MEDS ORDERED: RHOGAM 300 MCG (1500 IU) INJ (J2790) IM SCH (16:05)
[2020-07-22] MEDS ORDERED: ANUSOL HC CREAM 30GM TOP PRN (16:05)
[2020-07-22] MEDS ORDERED: ACETAMINOPHEN TAB 650MG DOSE (2X325MG) PO PRN (16:05)
[2020-07-22] MEDS ORDERED: DIBUCAINE 1% OINTMENT 30GM TOP PRN (16:05)
[2020-07-22] MEDS ORDERED: DOCUSATE SODIUM 100MG CAPSULE PO PRN (16:05)
--- NOTE | 2020-07-22 17:19 | DN ---
DELIVERY NOTE DATE OF DELIVERY: 07/22/2020 TIME OF : 1560 GENDER: Male APGARS: 9 and 9 LACERATIONS: Bilateral labial lacerations with a left labial laceration extending into the left vaginal side wall. ANESTHESIA: Epidural. ESTIMATED BLOOD LOSS: 350 mL. COUNTS: Correct and verified. DESCRIPTION OF DELIVERY: Karo is a 19-year-old 1, para 1-0-0-1 now who was admitted to labor and delivery with premature rupture of membranes. Misoprostol, IV Pitocin, and labor did ensue. She did use an epidural for her labor coping. She reached complete dilation at 1432. She pushed to a normal spontaneous vaginal delivery of a live male in occiput anterior (OA) position with restitution to right occiput transverse (ROT) position at 1560. There was a nuchal cord x1, loose, reduced manually at the time of delivery. The 's mouth and nares were bulb suctioned and he was placed on the maternal abdomen crying and active. The cord was clamped x2 once the pulsations ceased and cut by the father of the baby under my direction. Spontaneous expulsion of an intact placenta with three-vessel cord by Perez mechanism was at 1524. Uterine hemostasis achieved with IV Pitocin rapid infusion and uterine fundal massage. Estimated blood loss 350 mL. Perineum and vagina inspected noted to have bilateral labial lacerations with a left labial laceration extending into the left vaginal side wall. The lacerations were repaired under epidural anesthesia with 3-0 Vicryl Rapide in the usual fashion. The male weighed 3160 grams, 6 pounds 15 ounces. Apgars 9 and 9. Mom is going to breastfeed her son and they have named him Leo. At the close of delivery, lap counts, needle counts, and instrument counts were correct and verified.
[2020-07-22] MEDS: IBUPROFEN 800 MG TAB PO PRN (17:56)
[2020-07-22] MEDS: ACETAMINOPHEN 500 MG TAB PO PRN (18:58)
[2020-07-23 05:54] VITALS: BP 121/75
[2020-07-23] MEDS: ACETAMINOPHEN 500 MG TAB PO PRN ×2 (05:55→15:52)
[2020-07-23] MEDS: IBUPROFEN 800 MG TAB PO PRN ×2 (09:44→19:26)
[2020-07-23] MEDS: PRENATAL VITAMINS CHEWABLE TABLET PO SCH (09:44)
[2020-07-23 18:00] VITALS: BP 138/61
[2020-07-23] MEDS: PERCOCET 5MG/325MG TAB PO PRN (22:07)
[2020-07-24] MEDS: PERCOCET 5MG/325MG TAB PO PRN ×2 (04:05→11:48)
[2020-07-24] MEDS: IBUPROFEN 800 MG TAB PO PRN (05:53)
[2020-07-24 06:00] VITALS: BP 132/75
[2020-07-24] MEDS ORDERED: IBUP80TA PO (06:10)
[2020-07-24] MEDS: PRENATAL VITAMINS CHEWABLE TABLET PO SCH (07:47)
== END 2020-07-24 12:20 | disposition home or self-care (01) | DRG 560 ==
LOC: M LDO 17:26 → M LDI 18:06 → M OBS 07-22 19:56
PROVIDERS: ADMIT Obstetrics & Gynecology; ATTEND Obstetrics & Gynecology
PROC: 10E0XZZ Delivery of Products of Conception, External Approach (ICD-10-PCS; principal; 2020-07-22)
PROC: 0KQM0ZZ Repair Perineum Muscle, Open Approach (ICD-10-PCS; 2020-07-22)
PROC: 0HQ9XZZ Repair Perineum Skin, External Approach (ICD-10-PCS; 2020-07-22)
DX: O42.013 Preterm premature rupture of membranes, onset of labor within 24 hours of rupture, third trimester (principal); Z3A.36 36 weeks gestation of pregnancy; Z37.0 Single live birth; O99.214 Obesity complicating childbirth; E66.9 Obesity, unspecified; O26.53 Maternal hypotension syndrome, third trimester; O69.81X0 Labor and delivery complicated by cord around neck, without compression, not applicable or unspecified; O70.1 Second degree perineal laceration during delivery; O70.0 First degree perineal laceration during delivery

== ENCOUNTER → 2021-12-23 | Outpatient (CLI) | payer MEDICAID, OTHER ==
[~2021-12-23] MED LIST changes: +IBUP80TA PO
== END ==
LOC: M PLALAB 11:49
PROVIDERS: ATTEND Obstetrics & Gynecology
DX: N91.2 Amenorrhea, unspecified (principal)

== ENCOUNTER → 2021-12-25 | Outpatient (CLI) | payer OTHER | LOC: M LAB 14:54 | PROVIDERS: ATTEND Obstetrics & Gynecology | DX: Z3A.01 Less than 8 weeks gestation of pregnancy (principal) ==

== ENCOUNTER → 2021-12-29 | Outpatient (CLI) | payer OTHER | LOC: M LAB 13:43 | PROVIDERS: ATTEND Obstetrics & Gynecology | DX: O02.81 Inappropriate change in quantitative human chorionic gonadotropin (hCG) in early pregnancy (principal); Z3A.01 Less than 8 weeks gestation of pregnancy ==

== ENCOUNTER 2022-01-09 19:01 | Emergency (ER) | payer OTHER ==
[~2022-01-09] VITALS: Ht 167.6 cm; Wt 91.4 kg
[2022-01-09 19:02] VITALS: BP 139/81
[2022-01-09] MEDS ORDERED: keflex PO (19:13)
[2022-01-09 19:45] LABS: BASO % 0.2 % (0.0-1.0); EOS # 0.1 10^3/uL (0.0-0.5); EOS % 0.6 % (0.0-3.0); HEMATOCRIT 35.6 % (36.0-47.0); LYMPH # 2.5 10^3/uL (1.5-5.0); LYMPH % 18.7 % (24.0-44.0); MEAN CORPUSCULAR HEMOGLOBIN 29.1 pg (27.0-33.0); MEAN CORPUSCULAR HGB CONC 33.7 g/dl (32.0-36.5); MEAN CORPUSCULAR VOLUME 86.2 fl (80.0-96.0); MONO # 0.6 10^3/uL (0.0-0.8); MONO % 4.8 % (2.0-8.0); NEUTROPHILS % 75.1 % (36.0-66.0); PLATELET COUNT, AUTOMATED 278 10^3/uL (150-450); RED BLOOD COUNT 4.13 10^6/uL (4.00-5.40); WHITE BLOOD COUNT 13.3 10^3/uL (4.0-10.0)
[2022-01-09 20:58] LABS: BLOOD UREA NITROGEN 6 MG/DL (7-18); CARBON DIOXIDE LEVEL 26 MEQ/L (21-32); CHLORIDE LEVEL 107 MEQ/L (98-107); CREATININE FOR GFR 0.76 MG/DL (0.55-1.30); GLOMERULAR FILTRATION RATE > 60.0 (>60); GLUCOSE, FASTING 81 MG/DL (70-100); HCG, SERUM QUANTITATIVE 36563 MIU/ML; POTASSIUM SERUM 4.2 MEQ/L (3.5-5.1); SODIUM LEVEL 138 MEQ/L (136-145)
[2022-01-09] MEDS ORDERED: ACETAMINOPHEN 500 MG TAB PO ONE (21:55)
[2022-01-09] MEDS ORDERED: NS 1,000 ML IV ONE (21:55)
[2022-01-09 22:01] LABS: APPEARANCE, URINE MANUAL HAZY (CLEAR); BLOOD URINE MANUAL POSITIVE (NEGATIVE); COLOR, URINE MANUAL DK YELLOW (YELLOW); GLUCOSE, URINE (UA) MANUAL NEGATIVE (NEGATIVE); PROTEIN, URINE MANUAL TRACE mg/dL (NEGATIVE); SPECIFIC GRAVITY,URINE MANUAL 1.025 (1.002-1.035)
[2022-01-09 22:02] LABS: BILIRUBIN, URINE MANUAL NEGATIVE (NEGATIVE); KETONE, URINE MANUAL NEGATIVE (NEGATIVE); LEUKOCYTE ESTERASE, URINE MAN TRACE (NEGATIVE); NITRITE, URINE MANUAL NEGATIVE (NEGATIVE); UROBILINOGEN, URINE MANUAL NORMAL (NORMAL)
[2022-01-09 22:07] LABS: BACTERIA, URINE MOD AMOUNT; HYALINE CAST, URINE NONE SEEN /lpf (0-1); MUCUS, URINE MOD AMOUNT (NEGATIVE); RBC, URINE TNTC /hpf (0-3); SQUAMOUS EPITHELIAL CELL URINE MOD AMOUNT /hpf (SMALL AMT); WBC, URINE 0-1 /hpf (0-3)
[2022-01-09] MEDS ORDERED: LIDOCAINE 1% MDV 20ML VIAL SC ONE (23:45)
[2022-01-09] MEDS ORDERED: CEPHALEXIN 500 MG CAP PO ONE (23:45)
== END 2022-01-10 00:38 | disposition home or self-care (01) ==
LOC: M ED 19:01
DX: O20.9 Hemorrhage in early pregnancy, unspecified (principal); O23.91 Unspecified genitourinary tract infection in pregnancy, first trimester; N73.0 Acute parametritis and pelvic cellulitis; Z3A.08 8 weeks gestation of pregnancy; Z88.8 Allergy status to other drugs, medicaments and biological substances; Z91.018 Allergy to other foods; O99.331 Smoking (tobacco) complicating pregnancy, first trimester; F17.200 Nicotine dependence, unspecified, uncomplicated

== ENCOUNTER → 2022-03-07 | Outpatient (CLI) | payer MEDICAID, OTHER ==
[~2022-03-07] MED LIST changes: +keflex PO
[2022-03-07 15:34] LABS: HEMATOCRIT 37.8 % (36.0-47.0); HEMOGLOBIN 12.3 g/dl (12.0-15.5); MEAN CORPUSCULAR HEMOGLOBIN 28.8 pg (27.0-33.0); MEAN CORPUSCULAR HGB CONC 32.5 g/dl (32.0-36.5); MEAN CORPUSCULAR VOLUME 88.5 fl (80.0-96.0); PLATELET COUNT, AUTOMATED 248 10^3/uL (150-450); RED BLOOD COUNT 4.27 10^6/uL (4.00-5.40); WHITE BLOOD COUNT 11.4 10^3/uL (4.0-10.0)
[2022-03-07 16:54] LABS: HEPATITIS C VIRUS ABY INDEX < 0.0 INDEX (<0.8); HIV 1&2 SCREEN CENTAUR NEGATIVE (NEGATIVE)
[2022-03-07 17:10] LABS: GC DNA AMPLIFICATION NEGATIVE (NEGATIVE)
== END ==
LOC: M PLALAB 12:39
PROVIDERS: ATTEND Specialist
DX: Z34.82 Encounter for supervision of other normal pregnancy, second trimester (principal)

== ENCOUNTER → 2022-04-08 | Outpatient (CLI) | payer OTHER | LOC: M WHC 13:25 | PROVIDERS: ATTEND Specialist | DX: Z34.82 Encounter for supervision of other normal pregnancy, second trimester (principal) ==

== ENCOUNTER 2022-05-01 23:33 | Outpatient (CLI) | payer OTHER ==
[~2022-05-01] VITALS: Ht 167.6 cm; Wt 99.1 kg
[2022-05-01 23:55] VITALS: BP 128/83
[2022-05-02] MEDS ORDERED: LR 800 ML IV ONE (00:15)
[2022-05-02] MEDS ORDERED: TUMS500C PO (01:00)
[2022-05-02] MEDS ORDERED: ACET325C5 PO (01:00)
[2022-05-02] MEDS ORDERED: PREN1TAB11 PO (01:00)
[2022-05-02] MEDS ORDERED: HOME MED LIST COMPLETE! XX SCH (01:05)
[2022-05-02 01:09] LABS: BASO % 0.2 % (0.0-1.0); EOS # 0.1 10^3/uL (0.0-0.5); EOS % 0.6 % (0.0-3.0); HEMATOCRIT 30.9 % (36.0-47.0); HEMOGLOBIN 10.6 g/dl (12.0-15.5); LYMPH # 2.7 10^3/uL (1.5-5.0); LYMPH % 16.3 % (24.0-44.0); MEAN CORPUSCULAR HEMOGLOBIN 30.3 pg (27.0-33.0); MEAN CORPUSCULAR HGB CONC 34.3 g/dl (32.0-36.5); MEAN CORPUSCULAR VOLUME 88.3 fl (80.0-96.0); MONO % 5.7 % (2.0-8.0); NEUTROPHILS # 12.7 10^3/uL (1.5-8.5); NEUTROPHILS % 76.6 % (36.0-66.0); PLATELET COUNT, AUTOMATED 228 10^3/uL (150-450); WHITE BLOOD COUNT 16.6 10^3/uL (4.0-10.0)
[2022-05-02 03:45] VITALS: BP 119/67
[2022-05-02 05:21] VITALS: BP 127/65
== END 2022-05-02 05:10 | disposition home or self-care (01) ==
LOC: M LDO 23:33
PROVIDERS: ATTEND Obstetrics & Gynecology
DX: O26.892 Other specified pregnancy related conditions, second trimester (principal); N89.8 Other specified noninflammatory disorders of vagina; Z3A.24 24 weeks gestation of pregnancy

== ENCOUNTER 2022-05-28 22:29 | Outpatient (CLI) | payer OTHER, MEDICAID ==
[~2022-05-28] VITALS: Ht 167.6 cm; Wt 97.6 kg
[~2022-05-28 22:29] MED LIST changes: +ACET325C5 PO; +PREN1TAB11 PO; +TUMS500C PO
[2022-05-28 22:47] VITALS: BP 119/72
[2022-05-28] MEDS ORDERED: HOME MED LIST COMPLETE! XX SCH (23:10)
[2022-05-28 23:58] LABS: APPEARANCE, URINE MANUAL CLEAR (CLEAR); COLOR, URINE MANUAL YELLOW (YELLOW)
[2022-05-29 00:05] LABS: GLUCOSE, URINE (UA) MANUAL NEGATIVE (NEGATIVE); KETONE, URINE MANUAL 3+ mg/dL (NEGATIVE); PROTEIN, URINE MANUAL NEGATIVE (NEGATIVE); UROBILINOGEN, URINE MANUAL NORMAL (NORMAL)
[2022-05-29 00:06] LABS: BILIRUBIN, URINE MANUAL NEGATIVE (NEGATIVE); BLOOD URINE MANUAL NEGATIVE (NEGATIVE); LEUKOCYTE ESTERASE, URINE MAN NEGATIVE (NEGATIVE); NITRITE, URINE MANUAL NEGATIVE (NEGATIVE)
== END 2022-05-29 00:29 | disposition home or self-care (01) ==
LOC: M LDO 22:29
PROVIDERS: ATTEND Specialist
DX: O26.893 Other specified pregnancy related conditions, third trimester (principal); N89.8 Other specified noninflammatory disorders of vagina; Z3A.28 28 weeks gestation of pregnancy

== ENCOUNTER → 2022-06-02 | Outpatient (CLI) | payer OTHER ==
[2022-06-02 10:47] LABS: HEMATOCRIT 31.9 % (36.0-47.0); HEMOGLOBIN 10.6 g/dl (12.0-15.5); MEAN CORPUSCULAR HEMOGLOBIN 29.9 pg (27.0-33.0); MEAN CORPUSCULAR HGB CONC 33.2 g/dl (32.0-36.5); MEAN CORPUSCULAR VOLUME 89.9 fl (80.0-96.0); PLATELET COUNT, AUTOMATED 254 10^3/uL (150-450); RED BLOOD COUNT 3.55 10^6/uL (4.00-5.40); WHITE BLOOD COUNT 13.9 10^3/uL (4.0-10.0)
[2022-06-02 16:25] LABS: GC DNA AMPLIFICATION NEGATIVE (NEGATIVE)
== END ==
LOC: M PLALAB 07:43
PROVIDERS: ATTEND Obstetrics & Gynecology
DX: Z34.92 Encounter for supervision of normal pregnancy, unspecified, second trimester (principal)

== ENCOUNTER → 2022-06-02 | Outpatient (CLI) | payer OTHER | LOC: M WHC 08:03 | PROVIDERS: ATTEND Obstetrics & Gynecology | DX: Z34.92 Encounter for supervision of normal pregnancy, unspecified, second trimester (principal); Z3A.20 20 weeks gestation of pregnancy ==

== ENCOUNTER 2022-06-06 02:14 | Outpatient (CLI) | payer OTHER ==
[~2022-06-06] VITALS: Ht 167.6 cm; Wt 99.5 kg
[2022-06-06 02:35] VITALS: BP 114/56
[2022-06-06] MEDS ORDERED: HOME MED LIST COMPLETE! XX SCH (03:10)
[2022-06-06 04:09] VITALS: BP 103/66
== END 2022-06-06 04:33 | disposition home or self-care (01) ==
LOC: M LDO 02:14
PROVIDERS: ATTEND Obstetrics & Gynecology
DX: O26.853 Spotting complicating pregnancy, third trimester (principal); Z3A.29 29 weeks gestation of pregnancy; E86.0 Dehydration; O99.283 Endocrine, nutritional and metabolic diseases complicating pregnancy, third trimester
CPT/HCPCS: 59025; 81002; G0463

== ENCOUNTER → 2022-07-13 | Outpatient (REF) | payer OTHER, MEDICAID | LOC: M PLALAB 11:51 | PROVIDERS: ATTEND Advanced Practice Midwife | DX: O26.853 Spotting complicating pregnancy, third trimester (principal); Z3A.00 Weeks of gestation of pregnancy not specified ==

== ENCOUNTER → 2022-07-27 | Outpatient (REF) | payer OTHER, MEDICAID | LOC: M PLALAB 13:41 | PROVIDERS: ATTEND Specialist | DX: Z34.83 Encounter for supervision of other normal pregnancy, third trimester (principal) ==

== ENCOUNTER 2022-07-30 22:19 | Outpatient (CLI) | payer OTHER, MEDICAID ==
[~2022-07-30] VITALS: Ht 167.6 cm; Wt 102.6 kg
[2022-07-30 22:44] VITALS: BP 132/77
[2022-07-30] MEDS ORDERED: HOME MED LIST COMPLETE! XX SCH (22:55)
[2022-07-31 00:54] VITALS: BP 125/63
== END 2022-07-31 01:24 | disposition home or self-care (01) ==
LOC: M LDO 22:19
PROVIDERS: ATTEND Obstetrics & Gynecology
DX: O47.1 False labor at or after 37 completed weeks of gestation (principal); Z3A.37 37 weeks gestation of pregnancy
CPT/HCPCS: 59025; G0463

== ENCOUNTER → 2022-08-03 | Outpatient (CLI) | payer OTHER | LOC: M WHC 10:41 | PROVIDERS: ATTEND Advanced Practice Midwife | DX: O26.843 Uterine size-date discrepancy, third trimester (principal) ==

== ENCOUNTER 2022-08-04 08:08 | Outpatient (CLI) | payer OTHER ==
[~2022-08-04] VITALS: Ht 167.6 cm; Wt 100.5 kg
[2022-08-04 08:32] VITALS: BP 127/71
== END 2022-08-04 09:15 | disposition home or self-care (01) ==
LOC: M LDO 08:08
PROVIDERS: ATTEND Obstetrics & Gynecology
DX: O47.03 False labor before 37 completed weeks of gestation, third trimester (principal); Z3A.37 37 weeks gestation of pregnancy
CPT/HCPCS: 59025; G0463

== ENCOUNTER → 2022-08-05 | Outpatient (REF) | payer OTHER, MEDICAID | LOC: M PLALAB 09:02 | PROVIDERS: ATTEND Advanced Practice Midwife | DX: Z36.85 Encounter for antenatal screening for Streptococcus B (principal) ==

== ENCOUNTER 2022-08-12 05:08 | Inpatient (IN) | payer OTHER, MEDICAID ==
[2022-08-12] VITALS (30 sets, daily range): BP systolic 100–166; BP diastolic 51–95
[~2022-08-12] VITALS: Ht 167.6 cm; Wt 99.6 kg
[2022-08-12] MEDS ORDERED: OXYTOCIN DRIP 30 UNITS in IV 1 EA IV PRN ×4 (05:35)
[2022-08-12] MEDS ORDERED: CARBOPROST TROMETHAMINE 250 MCG/ML AMP IM PRN (05:35)
[2022-08-12] MEDS ORDERED: LACTATED RINGER'S 1000 ML IV PRN (05:35)
[2022-08-12] MEDS ORDERED: METHYLERGONOVINE MALEATE 0.2MG/ML 1ML VIAL IM PRN (05:35)
[2022-08-12] MEDS ORDERED: TRANEXAMIC ACID INJection 1,000 MG in NS 100 ML IV PRN (05:35)
[2022-08-12] MEDS ORDERED: FLUO-96 PO (05:43)
[2022-08-12 06:13] LABS: HEMATOCRIT 36.4 % (36.0-47.0); HEMOGLOBIN 12.3 g/dl (12.0-15.5); MEAN CORPUSCULAR HEMOGLOBIN 29.9 pg (27.0-33.0); MEAN CORPUSCULAR HGB CONC 33.8 g/dl (32.0-36.5); MEAN CORPUSCULAR VOLUME 88.3 fl (80.0-96.0); PLATELET COUNT, AUTOMATED 213 10^3/uL (150-450); RED BLOOD COUNT 4.12 10^6/uL (4.00-5.40); WHITE BLOOD COUNT 15.1 10^3/uL (4.0-10.0)
[2022-08-12] MEDS ORDERED: OXYTOCIN DRIP 30 UNITS in IV 1 EA IV SCH (13:25)
[2022-08-12] MEDS ORDERED: PROMETHAZINE 25MG/ML 1ML VIAL IV ONE (16:55)
[2022-08-12] MEDS ORDERED: NALBUPHINE HCL 10 MG/ML 1ML AMP IV PRN (16:55)
[2022-08-12] MEDS ORDERED: CALCIUM CARBONATE 500 MG CHEW U/D PO PRN (19:05)
[2022-08-12] MEDS ORDERED: ePHEDrine SULFATE 25 MG/5 ML(5MG/ML) SYRINGE IVP PRN (19:50)
[2022-08-12] MEDS ORDERED: NALOXONE INJ 0.4MG/1ML VIAL IV PRN (19:50)
[2022-08-12] MEDS ORDERED: LR 500 ML IV PRN (19:50)
[2022-08-12] MEDS ORDERED: EPIDURAL/PCA KEYS XX PRN (19:50)
[2022-08-12] MEDS ORDERED: ONDANSETRON 4MG 2ML VIAL IV PRN (19:50)
[2022-08-12] MEDS ORDERED: diphenhydrAMINE 50MG/ML VIAL IV PRN (19:50)
[2022-08-12] MEDS: LR 1,000 ML IV SCH ×2 (20:16→23:15)
[2022-08-12] MEDS: FENTANYL/ROPIVACAINE/NACL BAG 100 ML EPIDURAL SCH (20:21)
[2022-08-13] VITALS (19 sets, daily range): BP systolic 102–133; BP diastolic 50–98
[2022-08-13] MEDS: FENTANYL/ROPIVACAINE/NACL BAG 100 ML EPIDURAL SCH (03:59)
[2022-08-13] MEDS: LR 1,000 ML IV SCH (04:01)
[2022-08-13] MEDS ORDERED: DIBUCAINE 1% OINTMENT 30GM TOP PRN (06:35)
[2022-08-13] MEDS ORDERED: DOCUSATE SODIUM 100MG CAPSULE PO PRN (06:35)
[2022-08-13] MEDS ORDERED: RHOGAM 300MCG (1500IU) INJ IM SCH (06:35)
[2022-08-13] MEDS ORDERED: METHYLERGONOVINE MALEATE 0.2 MG TAB PO PRN (06:35)
[2022-08-13] MEDS ORDERED: ANUSOL HC CREAM 30GM TOP PRN (06:35)
[2022-08-13] MEDS ORDERED: MOM 30ML SUSPENSION UDC PO PRN (06:35)
[2022-08-13] MEDS: FLUoxetine 20MG CAP PO SCH (10:21)
[2022-08-13] MEDS: PRENATAL VITAMINS CHEWABLE TABLET PO SCH (10:21)
[2022-08-13] MEDS: IBUPROFEN 600MG TAB PO PRN ×2 (10:22→16:14)
[2022-08-13] MEDS: ACETAMINOPHEN 500 MG TAB PO PRN (19:45)
[2022-08-14] MEDS: ACETAMINOPHEN 500 MG TAB PO PRN ×3 (02:04→16:19)
[2022-08-14 06:00] VITALS: BP 98/53
[2022-08-14] MEDS: IBUPROFEN 600MG TAB PO PRN (07:59)
[2022-08-14] MEDS: PRENATAL VITAMINS CHEWABLE TABLET PO SCH (09:01)
[2022-08-14] MEDS: FLUoxetine 20MG CAP PO SCH (09:02)
[2022-08-14] MEDS ORDERED: KETOROLAC 30 MG/ML 1ML VIAL IV ONE (12:35)
[2022-08-14] MEDS ORDERED: MORPHINE 4 MG/ML 1ML VIAL IV ONE (12:45)
[2022-08-14 18:00] VITALS: BP 135/63
[2022-08-14] MEDS: KETOROLAC 30 MG/ML 1ML VIAL IV SCH (18:17)
[2022-08-15] MEDS: KETOROLAC 30 MG/ML 1ML VIAL IV SCH ×4 (00:29→12:13)
[2022-08-15 06:00] VITALS: BP 106/72
[2022-08-15] MEDS ORDERED: MEASLES,MUMPS,RUBELLA VACCINE INJ (MMR-II) SC.IMMUN ONE (09:00)
[2022-08-15] MEDS: FLUoxetine 20MG CAP PO SCH (09:05)
[2022-08-15] MEDS: PRENATAL VITAMINS CHEWABLE TABLET PO SCH (09:06)
[2022-08-15] MEDS ORDERED: FLUO20CA22 PO (11:42)
== END 2022-08-15 14:30 | disposition home or self-care (01) | DRG 560 ==
LOC: M LDO 05:08 → M LDI 05:33 → M OBS 08-13 07:43
PROVIDERS: ADMIT Obstetrics & Gynecology; ATTEND Advanced Practice Midwife
PROC: 10E0XZZ Delivery of Products of Conception, External Approach (ICD-10-PCS; principal; 2022-08-13)
PROC: 10907ZC Drainage of Amniotic Fluid, Therapeutic from Products of Conception, Via Natural or Artificial Opening (ICD-10-PCS; 2022-08-13)
DX: O80 Encounter for full-term uncomplicated delivery (principal); Z37.0 Single live birth; Z3A.38 38 weeks gestation of pregnancy

== ENCOUNTER 2023-10-26 06:22 | Day surgery (SDC) | payer MEDICAID, OTHER ==
[~2023-10-26] VITALS: Ht 162.6 cm; Wt 107.1 kg
[~2023-10-26 06:22] MED LIST changes: +FLUO-365 PO; +FLUO-96 PO
[2023-10-26] MEDS: ONDANSETRON 4MG 2ML VIAL IV ONE (07:20)
[2023-10-26] MEDS: MORPHINE 4 MG/ML 1ML VIAL IV ONE (07:21)
[2023-10-26 07:28] LABS: BASO % 0.2 % (0.0-1.0); EOS # 0.4 10^3/uL (0.0-0.5); EOS % 2.9 % (0.0-3.0); HEMATOCRIT 37.9 % (36.0-47.0); HEMOGLOBIN 12.8 g/dl (12.0-15.5); LYMPH # 1.6 10^3/uL (1.5-5.0); LYMPH % 11.5 % (24.0-44.0); MEAN CORPUSCULAR HEMOGLOBIN 28.9 pg (27.0-33.0); MEAN CORPUSCULAR HGB CONC 33.8 g/dl (32.0-36.5); MEAN CORPUSCULAR VOLUME 85.6 fl (80.0-96.0); MONO # 0.7 10^3/uL (0.0-0.8); MONO % 4.7 % (2.0-8.0); NEUTROPHILS # 11.4 10^3/uL (1.5-8.5); NEUTROPHILS % 80.2 % (36.0-66.0); PLATELET COUNT, AUTOMATED 302 10^3/uL (150-450); RED BLOOD COUNT 4.43 10^6/uL (4.00-5.40); WHITE BLOOD COUNT 14.2 10^3/uL (4.0-10.0)
[2023-10-26] MEDS: NS 1,000 ML IV ONE (07:43)
[2023-10-26] MEDS: KETOROLAC 30 MG/ML 1ML VIAL IV ONE (07:53)
[2023-10-26 07:59] LABS: BLOOD UREA NITROGEN 6 MG/DL (9-23); CALCIUM LEVEL 8.9 MG/DL (8.5-10.1); CARBON DIOXIDE LEVEL 23 MMOL/L (20-31); CHLORIDE LEVEL 107 MMOL/L (98-107); CREATININE FOR GFR 0.52 MG/DL (0.55-1.30); GLOMERULAR FILTRATION RATE > 60.0 (>60); GLUCOSE, FASTING 95 MG/DL (60-100); POTASSIUM SERUM 3.8 MMOL/L (3.5-5.1); SODIUM LEVEL 137 MMOL/L (136-145)
[2023-10-26] MEDS: MORPHINE 2 MG/ML 1ML VIAL IV PRN ×2 (08:26→14:07)
[2023-10-26] MEDS ORDERED: HOME MED LIST COMPLETE! XX SCH (09:10)
[2023-10-26] MEDS: HYDROMORPHONE HCL 0.5 MG/ 0.5 ML SYRINGE IV ONE (10:13)
[2023-10-26] MEDS: DOXYCYCLINE HYCLATE 100 MG in D5W MINI-BAG PLUS 100 ML IV ONE ×2 (11:16→12:45)
[2023-10-26] MEDS ORDERED: propofoL 200 MG/20 ML VIAL As Ordered ONE (12:04)
[2023-10-26] MEDS ORDERED: MIDAZOLAM INJ 2MG/2ML VIAL As Ordered ONE (12:04)
[2023-10-26] MEDS ORDERED: LIDOCAINE 2% 100MG/5ML SDV (FOR ANES.) As Ordered ONE (12:04)
[2023-10-26] MEDS ORDERED: fentaNYL 100 MCG/2 ML INJECTION As Ordered ONE (12:04)
[2023-10-26] MEDS ORDERED: ONDANSETRON 4MG 2ML VIAL As Ordered ONE (12:04)
[2023-10-26] MEDS ORDERED: dexmedeTOMIDine (4MCG/ML)200MCG/50ML BTL (PRECEDEX) As Ordered ONE (12:05)
[2023-10-26] MEDS ORDERED: KETOROLAC 60MG 2ML VIAL As Ordered ONE (12:05)
[2023-10-26] MEDS ORDERED: MORPHINE 2 MG/ML 1ML VIAL IV PRN (12:10)
[2023-10-26] MEDS ORDERED: DOXYCYCLINE HYCLATE 100MG/10ML VIAL As Ordered ONE (12:36)
[2023-10-26] MEDS ORDERED: PHENYLephrine 500MCG 5ML (100MCG/ML) SYRINGE As Ordered ONE (12:51)
[2023-10-26] MEDS ORDERED: ACETAMINOPHEN 1000MG 100ML IV BAG As Ordered ONE (13:03)
[2023-10-26] MEDS ORDERED: METHYLERGONOVINE MALEATE 0.2MG/ML 1ML VIAL As Ordered ONE (13:09)
[2023-10-26] MEDS ORDERED: ePHEDrine SULFATE 25 MG/5 ML(5MG/ML) SYRINGE As Ordered ONE (13:24)
[2023-10-26] MEDS ORDERED: MEPERIDINE 50 MG/ML 1ML VIAL As Ordered ONE (13:38)
[2023-10-26] MEDS: LR 1,000 ML IV SCH (13:41)
[2023-10-26] MEDS ORDERED: fentaNYL 100 MCG/2 ML INJECTION IV PRN (13:45)
[2023-10-26] MEDS ORDERED: ONDANSETRON 4MG 2ML VIAL IV PRN (13:45)
[2023-10-26] MEDS: oxyCODONE 5MG TAB PO PRN (14:23)
[2023-10-26 14:39] LABS: HEMATOCRIT 32.4 % (36.0-47.0); MEAN CORPUSCULAR HEMOGLOBIN 29.1 pg (27.0-33.0); PLATELET COUNT, AUTOMATED 240 10^3/uL (150-450); RED BLOOD COUNT 3.68 10^6/uL (4.00-5.40); WHITE BLOOD COUNT 9.1 10^3/uL (4.0-10.0)
[2023-10-26 14:44] LABS: HEMOGLOBIN 10.7 g/dl (12.0-15.5)
[2023-10-26] MEDS ORDERED: LR 1,000 ML IV SCH (15:00)
[2023-10-26] MEDS ORDERED: MORPHINE 4 MG/ML 1ML VIAL IV PRN (15:05)
[2023-10-26 15:14] VITALS: BP 117/93; TEMP 97.2; O2SAT 100
== END 2023-10-26 15:31 | disposition home or self-care (01) ==
LOC: M ED 06:22 → M SDC 06:23
PROVIDERS: ATTEND Obstetrics & Gynecology
DX: O02.1 Missed abortion (principal); O34.591 Maternal care for other abnormalities of gravid uterus, first trimester; Q51.28 Other and unspecified doubling of uterus; O99.331 Smoking (tobacco) complicating pregnancy, first trimester; F17.210 Nicotine dependence, cigarettes, uncomplicated; O99.211 Obesity complicating pregnancy, first trimester; O99.341 Other mental disorders complicating pregnancy, first trimester; F90.9 Attention-deficit hyperactivity disorder, unspecified type; F41.9 Anxiety disorder, unspecified; F32.A Depression, unspecified; Z91.018 Allergy to other foods
CPT/HCPCS: 36415; 59820; 76801; 76857; 80048; 85025; 85027; 86850; 86900; 86901; 87486; 87581; 87633; 87798; 88305; 96361; 96374; 96375; 96376; 99284; J0131; J1100; J1170; J1885; J2175; J2210; J2250; J2371; J2405; J3010

== ENCOUNTER 2023-10-30 17:23 | Emergency (ER) | payer OTHER ==
[~2023-10-30] VITALS: Ht 162.6 cm; Wt 111.5 kg
[2023-10-30 19:00] LABS: BASO # 0.1 10^3/uL (0.0-0.2); BASO % 0.3 % (0.0-1.0); EOS # 0.5 10^3/uL (0.0-0.5); HEMATOCRIT 31.1 % (36.0-47.0); HEMOGLOBIN 10.3 g/dl (12.0-15.5); LYMPH # 3.1 10^3/uL (1.5-5.0); LYMPH % 20.4 % (24.0-44.0); MEAN CORPUSCULAR HEMOGLOBIN 28.9 pg (27.0-33.0); MEAN CORPUSCULAR HGB CONC 33.1 g/dl (32.0-36.5); MEAN CORPUSCULAR VOLUME 87.1 fl (80.0-96.0); MONO # 0.5 10^3/uL (0.0-0.8); MONO % 3.4 % (2.0-8.0); NEUTROPHILS # 10.9 10^3/uL (1.5-8.5); NEUTROPHILS % 72.3 % (36.0-66.0); PLATELET COUNT, AUTOMATED 327 10^3/uL (150-450); RED BLOOD COUNT 3.57 10^6/uL (4.00-5.40); WHITE BLOOD COUNT 15.1 10^3/uL (4.0-10.0)
[2023-10-30 19:22] LABS: LIPASE 28 U/L (12-53)
[2023-10-30 19:25] LABS: ALBUMIN 3.3 G/DL (3.2-5.2); ALKALINE PHOSPHATASE 82 U/L (46-116); ALT/SGPT 30 U/L (7.0-40); AST/SGOT 12 U/L (<34); BILIRUBIN,DIRECT 0.1 MG/DL (<0.4); BILIRUBIN,TOTAL 0.4 MG/DL (0.3-1.2); BLOOD UREA NITROGEN 10 MG/DL (9-23); CALCIUM LEVEL 8.7 MG/DL (8.5-10.1); CARBON DIOXIDE LEVEL 22 MMOL/L (20-31); CHLORIDE LEVEL 111 MMOL/L (98-107); CREATININE FOR GFR 0.61 MG/DL (0.55-1.30); GLOMERULAR FILTRATION RATE > 60.0 (>60); GLUCOSE, FASTING 87 MG/DL (60-100); POTASSIUM SERUM 4.2 MMOL/L (3.5-5.1); SODIUM LEVEL 140 MMOL/L (136-145); TOTAL PROTEIN 6.2 G/DL (5.7-8.2)
[2023-10-30] MEDS: ONDANSETRON 4MG 2ML VIAL IV ONE (21:37)
[2023-10-30] MEDS: MORPHINE 4 MG/ML 1ML VIAL IV ONE (21:39)
[2023-10-30] MEDS: NS 1,000 ML IV ONE (21:40)
[2023-10-30] MEDS: KETOROLAC 30 MG/ML 1ML VIAL IV ONE (23:09)
[2023-10-30] MEDS ORDERED: ISOVUE-370 76% 100ML VIAL As Ordered ONE (23:10)
[2023-10-31] MEDS: MAGNESIUM CITRATE 300ML BTL PO ONE (00:24)
[2023-10-31 00:36] VITALS: BP 127/75; TEMP 97.9; O2SAT 100
== END 2023-10-31 01:06 | disposition home or self-care (01) ==
LOC: M ED 17:23
DX: R10.2 Pelvic and perineal pain (principal); K59.00 Constipation, unspecified; K42.9 Umbilical hernia without obstruction or gangrene; Q51.22 Partial doubling of uterus
CPT/HCPCS: 74177; 76830; 76856; 80048; 80076; 81001; 83605; 83690; 85025; 87040; 93976; 96361; 96374; 96375; 99284; J1885; J2405; Q9967